=== PATIENT | female | born 1990 | race Two or more races ===

== ENCOUNTER → 2023-11-13 07:36 | Outpatient (REF) | payer OTHER, SELFPAY ==
[2023-11-13 08:39] LABS: ALT (SGPT) 22 U/L (0-35); AST (SGOT) 29 U/L (14-36); Albumin 4.1 g/dl (3.5-5.0); Alkaline Phosphatase 90 U/L (38-126); Blood Urea Nitrogen 8 mg/dl (7-17); Calcium 8.9 mg/dl (8.4-10.2); Carbon Dioxide 22 mmol/L (22-30); Chloride 110 mmol/L (98-107); Glucose 94 mg/dl (70-99); Potassium 4.2 mmol/L (3.5-5.1); Total Bilirubin 0.3 mg/dl (0.2-1.3); eGFR > 60.00
[2023-11-13 08:55] LABS: Free T4 0.94 ng/dl (0.78-2.19)
[2023-11-13 09:04] LABS: Sodium 137 mmol/L (135-145)
[2023-11-13 09:09] LABS: TSH 0.61 uIU/ml (0.47-4.68)
[2023-11-13 10:22] LABS: Free T3 3.69 pg/ml (2.77-5.27)
== END ==
LOC: REG 07:36
PROVIDERS: ATTENDING PHYSICIAN Internal Medicine Endocrinology, Diabetes & Metabolism; FAMILY PHYSICIAN Internal Medicine
DX: E05.90 Thyrotoxicosis, unspecified without thyrotoxic crisis or storm (principal)
CPT/HCPCS: 36415; 80053; 84439; 84443; 84481

== ENCOUNTER → 2024-01-14 09:54 | Outpatient (REF) | payer OTHER, SELFPAY ==
[2024-01-14 10:53] LABS: % Basophils 0.6 % (0-2); % Eosinophils 17.5 % (0-6); % Lymphocytes 38.1 % (20.5-51.1); % Monocytes 6.7 % (1.7-9.3); % Neutrophils 37.1 % (42.2-75.2); Absolute Eosinophils 1.2 10^3/uL (0-0.7); Absolute Lymphocytes 2.5 10^3/uL (1.2-3.4); Absolute Monocytes 0.5 10^3/uL (0.1-0.6); Absolute Neutrophils 2.5 10^3/uL (1.4-6.5); Hematocrit 40.1 % (37.0-47.0); Hemoglobin 13.2 g/dL (12.0-16.0); Mean Corp Hgb Conc. 32.9 g/dL (33.0-37.0); Mean Corpuscular Hgb 25.8 pg (27.0-31.0); Mean Corpuscular Volume 78.3 fL (81.0-99.0); Mean Platelet Volume 10.7 fL (7.4-10.4); Nucleated Red Blood Cells % 0 %; Platelet Count 259 10^3/uL (130-400); Red Blood Cell Count 5.12 10^6/uL (4.20-5.40); Red Cell Dist. Width 14.3 % (11.5-14.5); White Blood Cell Count 6.7 10^3/uL (4.8-10.8)
[2024-01-14 11:26] LABS: ALT (SGPT) 21 U/L (0-35); AST (SGOT) 28 U/L (14-36); Albumin 4.4 g/dl (3.5-5.0); Alkaline Phosphatase 83 U/L (38-126); Amylase 109 U/L (30-110); Blood Urea Nitrogen 9 mg/dl (7-17); Calcium 9.6 mg/dl (8.4-10.2); Carbon Dioxide 22 mmol/L (22-30); Chloride 108 mmol/L (98-107); Glucose 94 mg/dl (70-99); HDL Cholesterol 59 mg/dl; LDL Cholesterol, Calculated 103 mg/dl; Lipase 109 U/L (23-300); Potassium 4.8 mmol/L (3.5-5.1); Sodium 136 mmol/L (135-145); Total Bilirubin 0.5 mg/dl (0.2-1.3); Total Cholesterol 188 mg/dl (50-199); Total Protein 7.3 g/dl (6.3-8.2); Triglyceride 131 mg/dl (10-149); Very Low Density Lipoprotein 26 mg/dl (0-30); eGFR > 60.00
[2024-01-14 11:28] LABS: C-Reactive Protein < 5.00 mg/L (0.0-10.00)
[2024-01-14 11:43] LABS: Vitamin D, 25-OH*** 15.3 ng/mL (30-80)
[2024-01-14 11:57] LABS: TSH Reflex To Free T4 0.12 uIU/ml (0.47-4.68)
[2024-01-14 12:17] LABS: Vitamin B12 417 pg/ml (239-931)
[2024-01-14 12:25] LABS: Free T4 1.06 ng/dl (0.78-2.19)
[2024-01-14 13:55] LABS: Glycohemoglobin (HgbA1c) 5.8 % (4.0-5.6)
== END ==
LOC: REG 09:54
PROVIDERS: ATTENDING PHYSICIAN Nurse Practitioner Adult Health
DX: Z00.00 Encounter for general adult medical examination without abnormal findings (principal); R53.82 Chronic fatigue, unspecified; Z86.32 Personal history of gestational diabetes; R10.84 Generalized abdominal pain
CPT/HCPCS: 36415; 80053; 80061; 82150; 82306; 82607; 83036; 83690; 84439; 84443; 85025; 86140

== ENCOUNTER → 2024-05-28 10:49 | Outpatient (REF) | payer OTHER, SELFPAY ==
[2024-05-28 12:16] LABS: Free T3 3.23 pg/ml (2.77-5.27)
[2024-05-28 12:31] LABS: TSH 0.25 uIU/ml (0.47-4.68)
== END ==
LOC: REG 10:49
PROVIDERS: ATTENDING PHYSICIAN Internal Medicine Endocrinology, Diabetes & Metabolism; FAMILY PHYSICIAN Internal Medicine
DX: E05.90 Thyrotoxicosis, unspecified without thyrotoxic crisis or storm (principal)
CPT/HCPCS: 36415; 84439; 84443; 84481

== ENCOUNTER → 2024-07-02 12:57 | Outpatient (REF) | payer OTHER, SELFPAY | LOC: HWRAD 12:57 | PROVIDERS: ATTENDING PHYSICIAN Internal Medicine Endocrinology, Diabetes & Metabolism; FAMILY PHYSICIAN Internal Medicine | DX: E05.90 Thyrotoxicosis, unspecified without thyrotoxic crisis or storm (principal) | CPT/HCPCS: 76536 ==

== ENCOUNTER → 2024-09-22 11:17 | Outpatient (REF) | payer OTHER, SELFPAY ==
[2024-09-22 12:31] LABS: % Basophils 0.6 % (0-2); % Eosinophils 9.3 % (0-6); % Immature Granulocytes 0.2 % (0-0.5); % Lymphocytes 47.9 % (20.5-51.1); % Monocytes 5.9 % (1.7-9.3); % Neutrophils 36.1 % (42.2-75.2); Absolute Eosinophils 0.5 10^3/uL (0-0.7); Absolute Lymphocytes 2.4 10^3/uL (1.2-3.4); Absolute Monocytes 0.3 10^3/uL (0.1-0.6); Absolute Neutrophils 1.8 10^3/uL (1.4-6.5); Hematocrit 41.4 % (37.0-47.0); Hemoglobin 13.2 g/dL (12.0-16.0); Mean Corp Hgb Conc. 31.9 g/dL (33.0-37.0); Mean Corpuscular Hgb 25.3 pg (27.0-31.0); Mean Corpuscular Volume 79.3 fL (81.0-99.0); Mean Platelet Volume 11.1 fL (7.4-10.4); Nucleated Red Blood Cells % 0 %; Platelet Count 282 10^3/uL (130-400); Red Blood Cell Count 5.22 10^6/uL (4.20-5.40); Red Cell Dist. Width 14.7 % (11.5-14.5); White Blood Cell Count 5.1 10^3/uL (4.8-10.8)
[2024-09-22 13:17] LABS: Free T3 3.04 pg/ml (2.77-5.27); Free T4 0.94 ng/dl (0.78-2.19); Vitamin D, 25-OH*** 29.3 ng/mL (30-80)
[2024-09-22 13:30] LABS: TSH 1.25 uIU/ml (0.47-4.68)
[2024-09-22 13:31] LABS: ALT (SGPT) 19 U/L (0-35); AST (SGOT) 29 U/L (14-36); Albumin 4.8 g/dl (3.5-5.0); Alkaline Phosphatase 100 U/L (38-126); Blood Urea Nitrogen 11 mg/dl (7-17); Calcium 10.1 mg/dl (8.4-10.2); Carbon Dioxide 22 mmol/L (22-30); Chloride 105 mmol/L (98-107); Glucose 96 mg/dl (70-99); Iron 58 ug/dl (37-170); Potassium 4.4 mmol/L (3.5-5.1); Sodium 138 mmol/L (135-145); Total Bilirubin 0.4 mg/dl (0.2-1.3); Total Protein 7.9 g/dl (6.3-8.2); eGFR > 60.00
[2024-09-22 13:34] LABS: Ferritin 6.5 ng/ml (6.24-137)
[2024-09-22 13:40] LABS: Percent Saturation 12 % (20-50); Total Iron Binding Capacity 467 ug/dl (265-497)
[2024-09-22 13:50] LABS: Vitamin B12 414 pg/ml (239-931)
[2024-09-23 21:47] LABS: Thyroid Peroxidase Ab (TPO) 7.3 IU/mL (0.0-9.0)
[2024-09-24 13:52] LABS: TSH Receptor Antibody <1.10 IU/L (<=1.75)
[2024-09-24 15:11] LABS: Thyroid Stim. Immunoglobulin 0.15 IU/L (<=0.54)
== END ==
LOC: REG 11:17
PROVIDERS: ATTENDING PHYSICIAN Internal Medicine Endocrinology, Diabetes & Metabolism; FAMILY PHYSICIAN Internal Medicine; OTHER PHYSICIAN Ophthalmology
DX: E05.91 Thyrotoxicosis, unspecified with thyrotoxic crisis or storm (principal); E04.1 Nontoxic single thyroid nodule; E55.9 Vitamin D deficiency, unspecified
CPT/HCPCS: 36415; 80053; 82306; 82607; 82728; 83520; 83540; 83550; 84432; 84439; 84443; 84445; 84481; 85025; 86376; 86800

== ENCOUNTER → 2024-09-29 12:51 | Outpatient (REF) | payer OTHER, SELFPAY | LOC: HWRAD 12:51 | PROVIDERS: ATTENDING PHYSICIAN Ophthalmology; FAMILY PHYSICIAN Internal Medicine | DX: E05.00 Thyrotoxicosis with diffuse goiter without thyrotoxic crisis or storm (principal) | CPT/HCPCS: 70480 ==

== ENCOUNTER → 2025-01-22 09:18 | Outpatient (REF) | payer OTHER, SELFPAY ==
[2025-01-22 10:24] LABS: % Basophils 0.9 % (0-2); % Eosinophils 8.8 % (0-6); % Lymphocytes 47.6 % (20.5-51.1); % Monocytes 8.1 % (1.7-9.3); % Neutrophils 34.6 % (42.2-75.2); Absolute Basophils 0.1 10^3/uL (0-0.2); Absolute Eosinophils 0.5 10^3/uL (0-0.7); Absolute Lymphocytes 2.7 10^3/uL (1.2-3.4); Absolute Monocytes 0.5 10^3/uL (0.1-0.6); Hematocrit 39.2 % (37.0-47.0); Hemoglobin 12.7 g/dL (12.0-16.0); Mean Corp Hgb Conc. 32.4 g/dL (33.0-37.0); Mean Corpuscular Hgb 25.7 pg (27.0-31.0); Mean Corpuscular Volume 79.4 fL (81.0-99.0); Mean Platelet Volume 11.4 fL (7.4-10.4); Nucleated Red Blood Cells % 0 %; Platelet Count 227 10^3/uL (130-400); Red Blood Cell Count 4.94 10^6/uL (4.20-5.40); Red Cell Dist. Width 15.9 % (11.5-14.5); White Blood Cell Count 5.7 10^3/uL (4.8-10.8)
[2025-01-22 11:06] LABS: Glycohemoglobin (HgbA1c) 5.8 % (4.0-5.6)
[2025-01-22 11:07] LABS: ALT (SGPT) 12 U/L (0-35); AST (SGOT) 21 U/L (14-36); Albumin 4.2 g/dl (3.5-5.0); Alkaline Phosphatase 72 U/L (38-126); Blood Urea Nitrogen 7 mg/dl (7-17); Calcium 9.3 mg/dl (8.4-10.2); Carbon Dioxide 24 mmol/L (22-30); Chloride 111 mmol/L (98-107); Glucose 90 mg/dl (70-99); HDL Cholesterol 60 mg/dl; LDL Cholesterol, Calculated 88 mg/dl; Potassium 4.4 mmol/L (3.5-5.1); Sodium 141 mmol/L (135-145); Total Bilirubin 0.3 mg/dl (0.2-1.3); Total Cholesterol 176 mg/dl (50-199); Total Protein 7.4 g/dl (6.3-8.2); Triglyceride 144 mg/dl (10-149); Very Low Density Lipoprotein 28 mg/dl (0-30); eGFR > 60.00
[2025-01-22 11:23] LABS: Free T4 0.94 ng/dl (0.78-2.19)
[2025-01-22 11:35] LABS: Free T3 2.69 pg/ml (2.77-5.27)
[2025-01-22 11:37] LABS: TSH 2.16 uIU/ml (0.47-4.68)
[2025-01-22 11:54] LABS: Ferritin 15.7 ng/ml (6.24-137)
[2025-01-24 11:55] LABS: Iron 52 ug/dl (37-170)
[2025-01-24 12:04] LABS: Percent Saturation 12 % (20-50); Total Iron Binding Capacity 403 ug/dl (265-497)
== END ==
LOC: REG 09:18
PROVIDERS: ATTENDING PHYSICIAN Nurse Practitioner Adult Health; REFERRING PHYSICIAN Internal Medicine Endocrinology, Diabetes & Metabolism
DX: E05.90 Thyrotoxicosis, unspecified without thyrotoxic crisis or storm (principal); R73.9 Hyperglycemia, unspecified; Z00.00 Encounter for general adult medical examination without abnormal findings; E55.9 Vitamin D deficiency, unspecified
CPT/HCPCS: 36415; 80053; 80061; 82306; 82728; 83036; 83540; 83550; 84439; 84443; 84481; 85025